=== PATIENT | male | born 2000 | race Caucasian/White ===

== ENCOUNTER 2024-12-09 22:15 | Emergency (ER) | payer MEDICAID ==
[~2024-12-09] VITALS: Ht 167.6 cm; Wt 72.7 kg
[2024-12-09 22:17] VITALS: TEMP 98
[2024-12-09 23:00] LABS: PLATELET COUNT (AUTO) 252 K/uL (150-450); RED BLOOD CELL COUNT(AUTO) 5.00 MIL/uL (4.50-5.90); RED CELL DISTRIBUTION WIDTH 12.8 % (11.5-14.5); WHITE BLOOD COUNT (AUTO) 7.7 K/uL (4.5-11.0)
[2024-12-09 23:11] LABS: CALCIUM, TOTAL 8.6 mg/dL (8.8-10.5); CREATININE 1.13 mg/dL (0.60-1.30); GLOMERULAR FILTR. RATE CALC > 60 mL/min (>60); GLUCOSE,RANDOM 97 mg/dL (70-110); SODIUM SERUM 138 mmol/L (136-145); UREA NITROGEN, BLOOD 20 mg/dL (7-18)
[2024-12-09 23:20] LABS: TROPONIN I-HIGH SENSITIVITY 5 ng/L (<76)
[2024-12-10 01:00] VITALS: BP 124/67; PULSE 71; RESP 18; O2SAT 100
[2024-12-10] MEDS: ACETAMINOPHEN 500 MG TABLET PO ONE (01:30)
== END 2024-12-10 03:02 | disposition home or self-care (01) ==
LOC: EMS 22:15
DX: R07.89 Other chest pain (principal)
CPT/HCPCS: 71045; 80048; 84484; 85025; 93005; 99285; 36415-L1; 36415-TC